=== PATIENT | female | born 1960 | race Caucasian/White ===

== ENCOUNTER 2019-10-09 21:02 | Emergency (ER) | payer MEDICARE ==
[2019-10-09] MEDS ORDERED: Lidocaine 1% PF 5 ML VIAL ONE (21:29)
== END 2019-10-09 23:15 | disposition home or self-care (01) ==
LOC: BURERS 21:02
DX: S61.203A Unspecified open wound of left middle finger without damage to nail, initial encounter (principal); E11.9 Type 2 diabetes mellitus without complications; E78.5 Hyperlipidemia, unspecified; Z79.4 Long term (current) use of insulin; Z79.899 Other long term (current) drug therapy; W26.9XXA Contact with unspecified sharp object(s), initial encounter
CPT/HCPCS: 12031